=== PATIENT | male | born 1930 | race Caucasian/White ===

== ENCOUNTER 2018-08-16 16:15 | Emergency (ER) | payer MEDICARE, OTHER ==
[~2018-08-16] VITALS: Ht 182.9 cm; Wt 86.2 kg
--- NOTE | 2018-08-16 16:54 | EKG ---
[address] [address] Test Date: 2018-08-16 Test Time: 16:48:03 Pat Name: KEVIN LOWRY Department: Room: Gender: M Insurance Account Specialist: : [id number] Requested By: REY LAFLEUR Order Number: [id number] Reading MD: Shai Dueñas Measurements Intervals [place] Rate: 67 P: WI: QRS: -4 QRSD: 92 T: 31 QT: 422 QTc: 449 Interpretive Statements ATRIAL FIBRILLATION LEFTWARD AXIS LOW LIMB LEAD VOLTAGE Electronically Signed On 08-19-2018 10:26:59 CDT by Shai Dueñas
--- NOTE | 2018-08-16 17:22 | RAD ---
Examination: PORTABLE CHEST 1V History: SHORT OF BREATH Comparison/Correlation: 02/20/2010 two-view chest x-ray exam Findings: Portable upright frontal view chest was obtained. Cardiomegaly is present. Mild pulmonary vasculature congestion is present diffusely. Evaluation of the medial lung apices is precluded due to positioning of the patient's chin and mandible obscuring evaluation at this level. Evaluation of the retrocardiac region is limited due to cardiomegaly and underpenetrated technique. No definite infiltrate. No significant pleural effusion. Osteopenia suggested. Pulmonary hyperinflation noted. Impression: Mild congestive heart failure. No suspicious infiltrate on this limited exam. Electronically signed by: Jose David Phelps MD (08/16/2018 5:18 PM) [facility]
[2018-08-16 17:30] LABS: BASO # 0.1 x10^3/uL (0.0-0.2); BASO % 1 % (0-3); EOS # 0.3 x10^3/uL (0.0-0.7); EOS % 4 % (0-3); HEMATOCRIT 25.6 % (39.0-53.0); HEMOGLOBIN 8.6 g/dL (13.0-17.5); LYMPH # 0.7 x10^3/uL (1.0-4.8); LYMPH % 8 % (24-48); MEAN CORPUSCULAR HEMOGLOBIN 31 pg (25-35); MEAN CORPUSCULAR HGB CONC 34 g/dL (31-37); MEAN CORPUSCULAR VOLUME 92 fL (79-100); MONO # 0.8 x10^3/uL (0.0-1.1); MONO % 10 % (0-9); NEUT # 6.4 x10^3uL (1.8-7.7); NEUT % 78 % (31-73); PLATELET COUNT 386 x10^3/uL (140-400); RED BLOOD COUNT 2.79 x10^6/uL (4.30-5.70); RED CELL DISTRIBUTION WIDTH 17.2 % (11.5-14.5); WHITE BLOOD COUNT 8.2 x10^3/uL (4.0-11.0)
[2018-08-16 17:53] LABS: ALBUMIN 2.9 g/dL (3.4-5.0); ALBUMIN/GLOBULIN RATIO 0.8 (1.0-1.7); CALCIUM 8.1 mg/dL (8.5-10.1); CREATININE 3.4 mg/dL (0.7-1.3); GFR 17.2; POTASSIUM 4.3 mmol/L (3.5-5.1); TOTAL BILIRUBIN 0.2 mg/dL (0.2-1.0); TOTAL PROTEIN 6.5 g/dL (6.4-8.2)
--- NOTE | 2018-08-16 17:55 | PHYS DOC ---
Past History Past Medical History: Hypertension, Other Alcohol Use: None Drug Use: None Adult General Chief Complaint Chief Complaint: shortness of breath and generalized weakness HPI HPI Patient is a 87 year old male who brought in by his daughters from [place] because of shortness of breath. Patient had history of left hip replacement couple months ago and right nephrectomy because of cancer 2 weeks ago at [facility]. Patient had history of atrial fibrillation and today had constant shortness of breath with increasing heart rate beats and shortness of breath with standing up and mild activity. long-term reported that patient complaining of abdominal pain but patient denies abdominal pain and states he had Calvin catheter placement that was removed 2 days ago and he still has problem with his urination. Patient denies fever and chills, chest pain, focal neuro deficit. Patient complaining of abdominal distention after his surgery. Review of Systems Review of Systems Constitutional: Denies fever or chills, reports generalized weakness Eyes: Denies change in visual acuity, redness, or eye pain [] HENT: Denies nasal congestion or sore throat [] Respiratory: Complaints of shortness of breath [] Cardiovascular: No additional information not addressed in HPI [] GI: Complaints abdominal pain, nausea. Denies vomiting, bloody stools or diarrhea [] : Denies dysuria or hematuria [] Musculoskeletal: Denies back pain or joint pain [] Integument: Denies rash or skin lesions [] Neurologic: Denies headache, focal weakness or sensory changes [] Endocrine: Denies polyuria or polydipsia [] All other systems were reviewed and found to be within normal limits, except as documented in this note. Family History Family History Non-contributory Current Medications Current Medications See Nursing for home meds Allergies Allergies nkda Physical Exam Physical Exam Constitutional: mild distress, non-toxic appearance, pallor. [] HENT: Normocephalic, atraumatic, oropharynx moist, no oral exudates, nose normal. [] Eyes: PERRLA, EOMI, conjunctiva normal, no discharge. [] Neck: Normal range of motion, no tenderness, supple, no stridor. [] Cardiovascular: Irregularly irregular, no murmur [] Lungs & Thorax: Bilateral breath sounds clear to auscultation [] Abdomen: Bowel sounds normal, abdominal mild distention with fluid, abdomen wall edema, soft, mild generalize tenderness, no masses, no pulsatile masses. [ ] Surgical scars Skin: Warm, dry, no erythema, no rash. [] Back: No tenderness, no CVA tenderness. [] Extremities: No tenderness, no cyanosis, no clubbing, ROM intact, 2+ bilateral lower extremity edema] Scar Lt hip. Neurologic: Alert and oriented X 3, normal motor function, normal sensory function, no focal deficits noted. [] Psychologic: Affect anxious judgement normal, mood normal. [] Current Patient Data Vital Signs Vital Signs Date Time Temp Pulse Resp B/P (MAP) Pulse Ox O2 Delivery O2 Flow Rate FiO2 08/16/18 17:06 98.4 77 20 98 Room Air Lab Results Laboratory Tests Test 08/16/18 17:00 White Blood Count 8.2 x10^3/uL (4.0-11.0) Red Blood Count 2.79 x10^6/uL (4.30-5.70) L Hemoglobin 8.6 g/dL (13.0-17.5) L Hematocrit 25.6 % (39.0-53.0) L Mean Corpuscular Volume 92 fL (79-100) Mean Corpuscular Hemoglobin 31 pg (25-35) Mean Corpuscular Hemoglobin Concent 34 g/dL (31-37) Red Cell Distribution Width 17.2 % (11.5-14.5) H Platelet Count 386 x10^3/uL (140-400) Neutrophils (%) (Auto) 78 % (31-73) H Lymphocytes (%) (Auto) 8 % (24-48) L Monocytes (%) (Auto) 10 % (0-9) H Eosinophils (%) (Auto) 4 % (0-3) H Basophils (%) (Auto) 1 % (0-3) Neutrophils # (Auto) 6.4 x10^3uL (1.8-7.7) Lymphocytes # (Auto) 0.7 x10^3/uL (1.0-4.8) L Monocytes # (Auto) 0.8 x10^3/uL (0.0-1.1) Eosinophils # (Auto) 0.3 x10^3/uL (0.0-0.7) Basophils # (Auto) 0.1 x10^3/uL (0.0-0.2) EKG EKG EKG interpreted by me. EKG at 1648 short atrial flutter ablation at rate of 67, left cerrato axis, low voltage QRS, poor R-wave progress in anteroseptal leads, no acute ST and T-wave abnormalities. Radiology/Procedures Radiology/Procedures [address] [place] [id number] IMAGING REPORT Signed PATIENT: KEVIN LOWRY ACCOUNT: [id number] : 1930 LOCATION: ER AGE: 87 SEX: M EXAM STATUS: REG ER ORD. PHYSICIAN: REY LAFLEUR MD REASON: shortness of breath PROCEDURE: PORTABLE CHEST 1V Examination: PORTABLE CHEST 1V History: SHORT OF BREATH Comparison/Correlation: 02/20/2010 two-view chest x-ray exam Findings: Portable upright frontal view chest was obtained. Cardiomegaly is present. Mild pulmonary vasculature congestion is present diffusely. Evaluation of the medial lung apices is precluded due to positioning of the patient's chin and mandible obscuring evaluation at this level. Evaluation of the retrocardiac region is limited due to cardiomegaly and underpenetrated technique. No definite infiltrate. No significant pleural effusion. Osteopenia suggested. Pulmonary hyperinflation noted. Impression: Mild congestive heart failure. No suspicious infiltrate on this limited exam. Electronically signed by: Jose David Glasgow MD (08/16/2018 5:18 PM) [facility] DICTATED AND SIGNED BY: JOSE DAVID GLASGOW MD DATE: 08/16/18 [id number] CC: REY LAFLEUR MD; JASS STEVENSON ~ CT of abdomen shows postoperative changes.Rt. nephrectomy. Left hydronephrosis with cysts in kidney. Does have diverticulosis: Does have large amount of stool in the colon. Appendix appears to be normal. There is thickening of the bladder wall as well as a collection of fluid 10.6 x 8.3 x 6.3 .Bladder wall thickening, Marked kyphosis of the thoracic spine in due to joint changes. Does have left femoral geri. Course & Med Decision Making Course & Med Decision Making Pertinent Labs and Imaging are pending. Patient care transferred to Dr. Molina at 1800. Impression: 1. Generalized weakness 2. Emphysema 3. Bilateral pleural effusions. 4. Recent right nephrectomy- - [facility] 5. CHF= BNP 10,239 6. Urinary Tract Infection 7. Elevated BUN /Crea. 36/3.4 8. Elevated D-dimer 9. Anemia 8.6 10.Pelvic Fluid collection? Discussed presentation, testing, radiographic findings with Dr. Shakila Navarrete at [facility]. Will accept pt in transfer for further eval and tx. Dragon Disclaimer Dragon Disclaimer This electronic medical record was generated, in whole or in part, using a voice recognition dictation system. Departure Departure: Impression: Primary Impression: Shortness of breath Referrals: JASS STEVENSON (PCP) REY LAFLEUR MD Aug 16, 2018 17:55 DIA MOLINA MD Aug 17, 2018 07:27
[2018-08-16] MEDS ORDERED: IOHEXOL 240 MG/ML 50ML VIAL. ONE (18:18)
[2018-08-16 18:27] LABS: BACTERIA,URINE FEW /HPF (0-FEW); BILIRUBIN,URINE NEG (NEG); CLARITY,URINE CLOUDY; COLOR,URINE YELLOW; GLUCOSE,URINE NEG (NEG); NITRITE,URINE NEG (NEG); SQUAMOUS EPITHELIAL CELL,UR OCC /LPF; UROBILINOGEN,URINE 0.2 mg/dL (0.2 mg/dL); WBC,URINE >40 /HPF (0-4)
[2018-08-16] MEDS ORDERED: FUROSEMIDE 40 MG/4 ML VIAL IVP ONE (18:30)
[2018-08-16] MEDS ORDERED: IV NORMAL SALINE 50ML 50 ML ONE (20:20)
[2018-08-16] MEDS ORDERED: cefTRIAXone SODIUM 1 GM VIAL IV ONE (20:21)
--- NOTE | 2018-08-16 20:39 | RAD ---
Examination: CT CHEST ABDOMEN PELVIS WO History: SHORTNESS OF BREATH, ABDOMINAL PAIN, HX RIGHT NEPHRECTOMY GFR 17 - DID WITH ORAL ONLY Omni 240 30ML
COPD, AFIB, HTN, KIDNEY DISEASE Comparison/Correlation: None Findings: Axial images of the chest, abdomen, and pelvis were obtained without IV contrast. Oral contrast was administered (Omnipaque 240 30 cc). Sagittal and coronal reformatted images were provided. Lack of IV contrast may limit detection of mass lesions and inflammatory processes. Small bilateral pleural effusions are present. Minimal bibasilar atelectasis. Emphysematous involvement of the lung whyte noted. Borderline main pulmonary artery which may represent pulmonary artery hypertension noted. Upper abdominal ascites is present. Low-attenuation lesions involving the liver which probably represents cysts are present. Spleen is unremarkable. Adrenal glands are unremarkable other than adenomatous involvement. Left renal superior pole cyst is present. Absence of the right kidney is noted. Left hydronephrosis is present. Left inferior pole cyst is present. 2 interval cysts also noted. Diverticulosis of the colon is present. Moderate quantity of stool in the colon is evident. Appendix is normal. Urinary bladder is unremarkable. Circumferential thickening of the urinary bladder wall is nonspecific and present at the inferior aspect in particular. There is pelvic fluid present. This appears to be loculated in the rectovesical pouch measuring 10.6 cm anteroposterior by 8.3 cm transverse by 6.3 cm anteroposterior. Significant kyphosis of the thoracic spine is present. Postoperative changes of the proximal left femur noted with intramedullary geri and associated compression pin. Impression: Bilateral pleural effusions. Ascites. Pelvic fluid with a loculated appearance. No surrounding thick wall or inflammatory findings. This may represent loculated pelvic ascites. Diverticulosis of the colon is present. No definite acute inflammatory change. Right nephrectomy. Moderate quantity of stool in the colon. Circumferential wall thickening of the urinary bladder. Correlate for underlying cystitis. Electronically signed by: Jose David Phelps MD (08/16/2018 8:36 PM) [facility]
[2018-08-17 00:08] VITALS: BP 163/90
== END 2018-08-17 01:30 | disposition short-term general hospital (02) ==
LOC: ER 16:15
DX: R06.02 Shortness of breath (principal); R53.1 Weakness; J43.9 Emphysema, unspecified; J90 Pleural effusion, not elsewhere classified; I11.0 Hypertensive heart disease with heart failure; I50.9 Heart failure, unspecified; N39.0 Urinary tract infection, site not specified; R79.1 Abnormal coagulation profile; R79.89 Other specified abnormal findings of blood chemistry; D64.9 Anemia, unspecified; N13.30 Unspecified hydronephrosis; Z90.5 Acquired absence of kidney; N20.0 Calculus of kidney; Z96.642 Presence of left artificial hip joint
CPT/HCPCS: 36415; 71045; 71250; 74176; 80053; 81001; 82550; 83605; 83690; 83735; 83880; 84484; 85025; 85379; 85610; 85730; 87040; 87086; 93005; 96365; 96368; 96375; 99285; J0696; J1940; J3490